=== PATIENT | female | born 2000 | race Two or more races ===

== ENCOUNTER 2019-04-14 17:46 | Emergency (ER) | payer BC, OTHER ==
[~2019-04-14] VITALS: Ht 162.6 cm; Wt 49.9 kg
[2019-04-14 18:17] VITALS: BP 103/59
[2019-04-14 18:40] LABS: Basophils # (auto) 0 uL; Basophils % (auto) 0.3 % (0.0-2.0); Eosinophils # (auto) 0.1 uL; Eosinophils % (auto) 2.1 % (0.0-7.0); Hematocrit 39.3 % (36.0-46.0); Hemoglobin 13.4 g/dL (12.2-16.2); Lymphocytes # (auto) 1.7 uL; Lymphocytes % (auto) 34.1 % (10.0-50.0); Mean Corpuscular Hgb Conc. 34.2 g/dL (32.0-36.0); Mean Corpuscular Volume 87.7 fL (80.0-100.0); Monocytes # (auto) 0.5 uL; Monocytes % (auto) 11.2 % (0.0-12.0); Neutrophils # (auto) 2.6 uL; Neutrophils % (auto) 52.3 % (37.0-80.0); Nucleated Red Blood Cells % 0.2 %; Platelet Count (auto) 202 10^3/uL (140-450); Red Blood Cells 4.48 10^6/uL (4.0-5.20); Red Cell Distribution Width 12.6 % (11.8-14.3); White Blood Cell 4.9 10^3/uL (4.4-10.8)
[2019-04-14 19:04] LABS: Albumin 3.8 g/dL (3.4-5.0); Anion Gap 7 (5-15); Aspartate Aminotransferase 11 U/L (15-37); BUN/Creatinine Ratio 14.5; Blood Urea Nitrogen 10 mg/dL (7-18); Calcium 8.2 mg/dL (8.5-10.1); Carbon Dioxide 26 mmol/L (21-32); Chloride 108 mmol/L (98-107); GFR African American 138 mL/min; GFR Non-African American 114 mL/min; Glucose 112 mg/dL (74-106); Potassium 3.6 mmol/L (3.5-5.1); Sodium 141 mmol/L (136-145)
[2019-04-14 19:19] LABS: Alanine Aminotransferase 17 U/L (13-56); Alkaline Phosphatase 76 U/L (45-117); Total Protein 7.3 g/dL (6.4-8.2)
== END 2019-04-14 20:44 | disposition left against medical advice (07) ==
LOC: ER 17:50
DX: R20.0 Anesthesia of skin (principal); Z53.21 Procedure and treatment not carried out due to patient leaving prior to being seen by health care provider
CPT/HCPCS: 36415; 80053; 84484; 85025

== ENCOUNTER 2024-10-06 17:55 | Emergency (ER) | payer BC, MEDICAID ==
[~2024-10-06] VITALS: Ht 160 cm; Wt 56.4 kg
--- NOTE | 2024-10-06 18:15 | ED.PDOC ---
History of Present Illness HPI Comments 24-year-old female with no reported PMHx or PSHx presents with a chief complaint of suprapubic pain, low back pain, vaginal spotting, throat pain, nausea, vomiting, fever, and current . Patient states that she is 7 weeks , . Patient mentions that her pain is localized to her pelvic muriel on, radiates to her back, and rates her pain a 6/10. Patient denies any sick contacts at home but is febrile at 101.2F and has throat pain. Patient mentions that she has been nauseous and vomiting since last night. Chief Complaint: Pelvic Pain Time Seen by MD: 18:05 Reviewed Notes: Medications, Allergies Allergies: Uncoded Allergies: IODINE CONTRAST (Allergy, Intermediate, 10/06/24) Home Meds Active Scripts Acetaminophen (Tylenol Extra Strength) 500 Mg Tab, 1000 MG PO Q6HP PRN, #30 TAB prn fever or pain Prov:MICHAEL BAUER MD 10/06/24 Information Source: Patient Mode of Arrival: Ambulatory Severity: Moderate Timing: Hours Duration: Since onset Prehospital treatment: None Past Medical History PAST MEDICAL HISTORY: Denies Surgical History: Denies all surgeries 4 Para 1 AB 2 miscarriages Family History Family History: Reviewed,noncontributory to illness Social History Smoker: Non-Smoker Alcohol: Denies ETOH Use Drugs: Denies Drug Use Lives In: Home Constitutional: reports: fever; denies: chills, diaphoresis, fatigue, malaise, sweats, weakness, others EENTM: reports: throat pain; denies: blurred vision, double vision, ear bleeding, ear discharge, ear drainage, ear pain, ear ringing, eye pain, eye redness, hearing loss, mouth pain, mouth swelling, nasal discharge, nose bleeding, nose congestion, nose pain, photophobia, tearing, throat swelling, voice changes, others Respiratory: denies: cough, hemoptysis, orthopnea, SOB at rest, shortness of breath, SOB with excertion, stridor, wheezing, others Cardiovascular: denies: chest pain, dizzy spells, diaphoresis, Dyspnea on exertion, edema, irregular heart beat, left arm pain, lightheadedness, palpitations, PND, syncope, others Gastrointestinal: reports: abdominal pain, nausea, vomiting; denies: abdomen distended, blood streaked bowels, constipated, diarrhea, dysphagia, difficulty swallowing, hematemesis, melena, poor appetite, poor fluid intake, rectal bleeding, rectal pain, others Genitourinary: reports: abnormal vagina bleeding, ; denies: burning, dyspareunia, dysuria, flank pain, frequency, hematuria, incontinence, pain, vagina discharge, urgency, others Neurological: denies: dizziness, fainting, headache, left sided numbness, left sided weakness, numbness, paresthesia, pre-existing deficit, right sided numbness, right sided weakness, seizure, speech problems, tingling, tremors, weakness, others Musculoskeletal: reports: back pain; denies: gout, joint pain, joint swelling, muscle pain, muscle stiffness, neck pain, others Integumetry: denies: bruises, change in color, change in hair/nails, dryness, laceration, lesions, lumps, rash, wounds, others Allergic/Immunocompromised: denies: Difficulty Healing, Frequent Infections, Hives, Itching, others Hematologic/Lymphatic: denies: anemia, blood clots, easy bleeding, easy bruising, swollen glands, others Endocrine: denies: excessive hunger, excessive sweating, excessive thirst, excessive urination, flushing, intolerance to cold, intolerance to heat, unexplained weight gain, unexplained weight loss, others Psychiatric: denies: anxiety, bipolar disorder, depression, hopeless, panic disorder, schizophrenia, sleepless, suicidal, others All Other Systems: Reviewed and Negative Physical Exam General Appearance: No Apparent Distress HEENT: Other (Pupils and face symmetric. Moist mucous membranes.) Neck: Full Range of Motion, Normal Inspection Respiratory: Lungs Clear, No Respiratory Distress, Normal Breath Sounds Cardiovascular: No Edema, No JVD, Regular Rate/Rhythm Breast Exam: Deferred Gastrointestinal: Soft, Suprapubic, Tenderness Genitalia: Deferred Pelvic: Deferred Rectal: Deferred Extremities: Normal inspection, Normal range of motion, Non-tender, No pedal edema Musculoskeletal : Apperance: Normal Neurologic: Alert (Oriented x4), Normal Affect, Normal Mood, Other (Ambulatory) Cerebellar Function: NOT DONE Reflexes: NOT DONE Skin: Dry, Normal Color, Warm Lymphatic: NOT DONE Was a procedure done? Was a procedure done?: No Differential Dx Considerations may include: UTI, viral syndrome, endometritis, threatened , miscarriage, among others X-Ray, Labs, Meds, VS Vital Signs Date Time Temp Pulse Resp B/P (MAP) Pulse Ox O2 Delivery O2 Flow Rate FiO2 10/06/24 21:29 99.1 99 18 115/59 (77) 98 99.1 10/06/24 20:53 101.2 10/06/24 18:08 101.2 105 16 127/75 (92) 97 101.2 Lab Test 10/06/24 21:18 10/06/24 18:18 10/06/24 18:05 Range/Units Influenza Type A Antigen Negative Negative Influenza Type B Antigen Negative Negative SARS-CoV-2 Antigen (Rapid) Negative NEGATIVE White Blood Count 14.0 H 4.4-10.8 10^3/uL Red Blood Count 4.49 4.0-5.20 10^6/uL Hemoglobin 13.7 12.2-16.2 g/dL Hematocrit 40.3 36.0-46.0 % Mean Corpuscular Volume 89.7 80.0-100.0 fL Mean Corpuscular Hemoglobin 30.6 28.0-32.0 pg Mean Corpuscular Hemoglobin Concent 34.1 32.0-36.0 g/dL Red Cell Distribution Width 13.0 11.8-14.3 % Platelet Count 217 140-450 10^3/uL Mean Platelet Volume 8.7 6.9-10.8 fL Neutrophils (%) (Auto) 89.3 H 37.0-80.0 % Lymphocytes (%) (Auto) 5.0 L 10.0-50.0 % Monocytes (%) (Auto) 5.4 0.0-12.0 % Eosinophils (%) (Auto) 0.0 0.0-7.0 % Basophils (%) (Auto) 0.3 0.0-2.0 % Neutrophils # (Auto) 12.5 H 1.6-8.6 10 ^3/uL Lymphocytes # (Auto) 0.7 0.4-5.4 10 ^3/uL Monocytes # (Auto) 0.8 0-1.3 10 ^3/uL Eosinophils # (Auto) 0 0-0.8 10 ^3/uL Basophils # (Auto) 0 0-0.2 10 ^3/uL Nucleated Red Blood Cells 0.0 % Sodium Level 136 136-145 mmol/L Potassium Level 3.7 3.5-5.1 mmol/L Chloride Level 103 98-107 mmol/L Carbon Dioxide Level 26 20-31 mmol/L Anion Gap 7 5-15 Blood Urea Nitrogen 6 L 9-23 mg/dL Creatinine 0.69 0.550-1.02 mg/dL Glomerular Filtration Rate Calc 123 >90 mL/min BUN/Creatinine Ratio 8.7 L 10.0-20.0 Serum Glucose 97 74-106 mg/dL Calcium Level 10.2 8.7-10.4 mg/dL Beta HCG, Quantitative 759400.5 H 1.5-4.2 mIU/mL Urine Color Light-yellow Yellow Urine Clarity Clear Clear Urine pH 6.5 5.0-9.0 Urine Specific [place] 1.021 1.001-1.035 Urine Protein Negative Negative Urine Ketones Trace Negative Urine Blood Negative Negative /uL Urine Nitrite Negative Negative Urine Bilirubin Negative Negative Urine Urobilinogen Normal Negative mg/dL Urine Leukocyte Esterase Negative Negative /uL Urine RBC 1 0 - 4 /hpf Urine Microscopic WBC 1 0-5 /HPF Urine Squamous Epithelial Cells Few <5 /hpf Urine Bacteria None seen None Seen /hpf Urine Mucus Few None Seen Urine Glucose Normal Normal mg/dL Urine Opiates Screen Neg NEGATIVE Urine Fentanyl Screen Neg NEGATIVE Urine Barbiturates Screen Neg NEGATIVE Urine Phencyclidine Screen Neg NEGATIVE Urine Amphetamines Screen Neg NEGATIVE Urine Benzodiazepines Screen Neg NEGATIVE Urine Cocaine Screen Neg NEGATIVE Urine Cannabinoids Screen Neg NEGATIVE Current Medications Medications (Trade) Dose Ordered Sig/Lissette Route Start Time Stop Time Status Last Admin Sodium Chloride 2,000 ml @ 1,000 mls/hr Q2H ONCE IV 10/06/24 18:15 10/06/24 20:14 DC 10/06/24 20:50 Ondansetron HCl (Zofran) 4 mg ONCE ONCE IV 10/06/24 18:15 10/06/24 18:16 DC 10/06/24 20:53 Acetaminophen (Tylenol Tablet Or Capsule) 1,000 mg ONCE ONCE PO 10/06/24 18:15 10/06/24 18:16 DC 10/06/24 20:53 PROCEDURE(s): OB4US - OB ULTRASOUND COMP LESS 14WKS REASON: 7 wk preg pelvic pain vag spotting ORDER NUMBER(s): [id number], ACCESSION NUMBER(s): [id number] OB ULTRASOUND <14 WEEKS: HISTORY: 7 wk preg pelvic pain vag spotting TECHNIQUE: Multiple real-time grayscale sonographic images of the pelvis with duplex Doppler color flow, spectral and M-mode analysis. TRANSDUCERS: Transabdominal and transvaginal COMPARISON: None FINDINGS: The uterus measures 10.7 x 6.2 x 4.9 cm The cervix appears normal. Right ovary measures 2.9 x 1.5 x 2.6 cm with normal Doppler color flow. Left ovary measures 2.8 x 2.2 x 2.5 cm with normal Doppler color flow. IUP single fetus at 7 weeks 4 days average ultrasound age based on mean crown- rump length of 1.2 cm and gestational sac size of 2.8 cm heart rate detected at 169 beats per minute. Yolk sac is visualized. Holly-gestational space: Hypoechoic subchorionic focus measuring 2.6 x 0.9 x 0.8 cm. Additional subchorionic hypoechoic focus measuring 0.6 x 0.5 cm. IMPRESSION: IUP single live fetus 7 weeks 4 days AUA corresponding to an HARRISON of 05/21/2025. Small amount of subchorionic hemorrhage. Bilateral ovaries are normal. X-Ray, Labs, Meds, VS Comment 24-year-old female with reported seven week complaining of suprapubic pain, vaginal spotting, fever and sore throat Vitals remarkable for temperature 101.2, heart rate 105 Exam remarkable for suprapubic tenderness to palpation Rhythm strip independently interpreted by me: Sinus tach, rate 105, no ectopy. Ob ultrasound: IMPRESSION: IUP single live fetus 7 weeks 4 days AUA corresponding to an HARRISON of 05/21/2025. Small amount of subchorionic hemorrhage. Bilateral ovaries are normal. CBC remarkable for WBC 14, basic metabolic panel unremarkable, serum quantitative hCG 615643.5, UA unremarkable, influenza and COVID negative Patient treated with the following in the ED: 2 L 0.9 normal saline IV bolus, Tylenol 1 g p.o., Zofran 4 mg IV with improvement of symptoms Hospitalization was considered, however patient had rapid improvement of symptom s with treatment in the ED, an annual longer feel hospitalization is necessary. Patient appears stable for discharge with close outpatient follow up with her primary physician. Rx Tylenol, Augmentin Time of 1ST Reevaluation: 18:35 Reevaluation 1ST: Unchanged Time of 2ND Reevaluation: 21:07 Reevaluation 2ND: Improved Patient Education/Counseling: Diagnosis, Treatment Family Education/Counseling: No Family Present Departure 1 Departure Time of Disposition: 21:07 Impression: Primary Impression: Vaginal bleeding affecting early Additional Impressions: Febrile illness URI (upper respiratory infection) Qualified Codes: J02.9 - Acute pharyngitis, unspecified Disposition: HOME / SELF CARE / HOMELESS Condition: Stable Referrals: JAGRUTI DAN DO Additional Instructions: Your ultrasound showed a single live fetus. There was also a subchorionic hemorrhage, a condition which can cause bleeding in , however typically resolves as the fetus grows. It does not require any treatment at this time. Please see the report below. Follow up to establish care with an OBGYN as soon as possible. You has been referred to Dr. Dan. I have prescribed medication for fever and antibiotics for an upper respiratory infection. Follow up with your primary doctor in 1-2 days. Return to ER for persistent or worsening symptoms. [facility] [id number] [place] [address] Ph: [phone] DIAGNOSTIC IMAGING Diagnostic Imaging Report : [id number] Signed PATIENT: TIM EVANS ACCT: [id number] UNIT: [id number] : 2000 LOC: ER ROOM / BED: / AGE / SEX: 24 / F ADM STATUS: REG ER SERVICE 1810 ORDERING PHYSICIAN: MICHAEL BAUER MD PROCEDURE(s): OB4US - OB ULTRASOUND COMP LESS 14WKS REASON: 7 wk preg pelvic pain vag spotting ORDER NUMBER(s): [id number], ACCESSION NUMBER(s): [id number] OB ULTRASOUND <14 WEEKS: HISTORY: 7 wk preg pelvic pain vag spotting TECHNIQUE: Multiple real-time grayscale sonographic images of the pelvis with duplex Doppler color flow, spectral and M-mode analysis. TRANSDUCERS: Transabdominal and transvaginal COMPARISON: None FINDINGS: The uterus measures 10.7 x 6.2 x 4.9 cm The cervix appears normal. Right ovary measures 2.9 x 1.5 x 2.6 cm with normal Doppler color flow. Left ovary measures 2.8 x 2.2 x 2.5 cm with normal Doppler color flow. IUP single fetus at 7 weeks 4 days average ultrasound age based on mean crown- rump length of 1.2 cm and gestational sac size of 2.8 cm heart rate detected at 169 beats per minute. Yolk sac is visualized. Holly-gestational space: Hypoechoic subchorionic focus measuring 2.6 x 0.9 x 0.8 cm. Additional subchorionic hypoechoic focus measuring 0.6 x 0.5 cm. IMPRESSION: IUP single live fetus 7 weeks 4 days AUA corresponding to an HARRISON of 05/21/2025. Small amount of subchorionic hemorrhage. Bilateral ovaries are normal. e-Prescriptions Amoxicillin & Pot Clavulanate (AUGMENTIN TABLET) 875 Mg Tb 875 MG PO BID for 10 Days, #20 TAB Prov: MICHAEL ABUER MD 10/06/24 Acetaminophen (Tylenol Extra Strength) 500 Mg Tab 1000 MG PO Q6HP PRN, #30 TAB prn fever or pain Prov: MICHAEL BAUER MD 10/06/24 Discharged With: Relative Critical Care Note Critical Care Time?: No Stability Stability form required: No Heart Score Heart Score: Heart Score Response (Comments) Value History N/A 0 EKG N/A 0 Age N/A 0 Risk Factors N/A 0 Troponin N/A 0 Total 0 I personally scribed for MICHAEL BAUER MD ([email or web address]) on 10/06/24 at 18:15. Electronically submitted by Nakul Santoyo ([email or web address]). MICHAEL BAUER MD Oct 06, 2024 18:15
[2024-10-06 18:34] LABS: Basophils # (auto) 0 10 ^3/uL (0-0.2); Basophils % (auto) 0.3 % (0.0-2.0); Eosinophils # (auto) 0 10 ^3/uL (0-0.8); Hematocrit 40.3 % (36.0-46.0); Hemoglobin 13.7 g/dL (12.2-16.2); Lymphocytes # (auto) 0.7 10 ^3/uL (0.4-5.4); Mean Corpuscular Hemoglobin 30.6 pg (28.0-32.0); Mean Corpuscular Hgb Conc. 34.1 g/dL (32.0-36.0); Mean Corpuscular Volume 89.7 fL (80.0-100.0); Monocytes # (auto) 0.8 10 ^3/uL (0-1.3); Monocytes % (auto) 5.4 % (0.0-12.0); Neutrophils # (auto) 12.5 10 ^3/uL (1.6-8.6); Neutrophils % (auto) 89.3 % (37.0-80.0); Platelet Count (auto) 217 10^3/uL (140-450); Red Blood Cells 4.49 10^6/uL (4.0-5.20)
[2024-10-06 18:40] LABS: Chloride 103 mmol/L (98-107); Potassium 3.7 mmol/L (3.5-5.1); Sodium 136 mmol/L (136-145)
[2024-10-06 18:41] LABS: Anion Gap 7 (5-15); Calcium 10.2 mg/dL (8.7-10.4); Carbon Dioxide 26 mmol/L (20-31)
[2024-10-06 18:46] LABS: BUN/Creatinine Ratio 8.7 (10.0-20.0); Blood Urea Nitrogen 6 mg/dL (9-23); Glucose 97 mg/dL (74-106)
[2024-10-06 20:19] LABS: Urine Bacteria None Seen /hpf (None Seen)
[2024-10-06 20:24] LABS: Urine Blood Negative /uL (Negative); Urine Clarity Clear (Clear); Urine Color Light-Yellow (Yellow); Urine Mucus FEW (None Seen); Urine Protein, UAD Negative (Negative); Urine Specific Gravity 1.021 (1.001-1.035); Urine Squamous Epithelial Cell FEW /hpf (<5); Urine Urobilinogen Normal (Negative); Urine WBC 1 /HPF (0-5); Urine pH 6.5 (5.0-9.0)
--- NOTE | 2024-10-06 20:49 | DVH ---
OB ULTRASOUND <14 WEEKS: HISTORY: 7 wk preg pelvic pain vag spotting TECHNIQUE: Multiple real-time grayscale sonographic images of the pelvis with duplex Doppler color f low, spectral and M-mode analysis. TRANSDUCERS: Transabdominal and transvaginal COMPARISON: None FINDINGS: The uterus measures 10.7 x 6.2 x 4.9 cm The cervix appears normal. Right ovary measures 2.9 x 1.5 x 2.6 cm with normal Doppler color flow. Left ovary measures 2.8 x 2.2 x 2.5 cm with normal Doppler color flow. IUP single fetus at 7 weeks 4 days average ultrasound age based on mean crown-rump length of 1.2 cm and gestational sac size of 2.8 cm heart rate detected at 169 beats per minute. Yolk sac is visualized. Holly-gestational space: Hypoechoic subchorionic focus measuring 2.6 x 0.9 x 0.8 cm. Additional subch orionic hypoechoic focus measuring 0.6 x 0.5 cm. IMPRESSION: IUP single live fetus 7 weeks 4 days AUA corresponding to an HARRISON of 05/21/2025. Small amount of subchorionic hemorrhage. Bilateral ovaries are normal.
[2024-10-06 20:50] LABS: Amphetamine Screen, Urine Neg (NEGATIVE); Barbiturate Scree,Urine Neg (NEGATIVE); Benzodiazephine Screen, Urine Neg (NEGATIVE); Cannabinoid Screen, Urine Neg (NEGATIVE); Cocaine Screen, Urine Neg (NEGATIVE); Opiate Scree,Urine Neg (NEGATIVE); Phencyclidine Screen, Urine Neg (NEGATIVE)
[2024-10-06] MEDS: SODIUM CHLORIDE 0.9% 2,000 ML IV ONE (20:50)
[2024-10-06] MEDS: ACETAMINOPHEN 500 MG TAB or CAP PO ONE (20:53)
[2024-10-06] MEDS: ONDANSETRON HCL 4 MG/2 ML VIAL IV ONE (20:53)
[2024-10-06] MEDS ORDERED: ACET-1304 PO (21:12)
[2024-10-06 21:29] VITALS: BP 115/59; PULSE 99; RESP 18; O2SAT 98
[2024-10-06 21:53] VITALS: TEMP 101.2
[2024-10-06 21:55] LABS: COVID19 ANTIGEN SOFIA FIA NEGATIVE (NEGATIVE)
[2024-10-06 21:56] LABS: Rapid Influenza A Negative (Negative); Rapid Influenza B Negative (Negative)
[2024-10-06] MEDS ORDERED: AUG875T PO (22:05)
== END 2024-10-06 22:55 | disposition home or self-care (01) ==
LOC: ER 17:55
DX: O20.9 Hemorrhage in early pregnancy, unspecified (principal); O99.511 Diseases of the respiratory system complicating pregnancy, first trimester; J06.9 Acute upper respiratory infection, unspecified; O26.891 Other specified pregnancy related conditions, first trimester; R50.9 Fever, unspecified; O26.851 Spotting complicating pregnancy, first trimester; O21.9 Vomiting of pregnancy, unspecified; M54.50 Low back pain, unspecified; R10.2 Pelvic and perineal pain; Z20.822 Contact with and (suspected) exposure to COVID-19; Z79.899 Other long term (current) drug therapy; Z3A.01 Less than 8 weeks gestation of pregnancy; Z88.8 Allergy status to other drugs, medicaments and biological substances
CPT/HCPCS: 36415; 76801; 80048; 80307; 81001; 84702; 85025; 87426; 87804; 96361; 96374; 99285; J2405; J7030

== ENCOUNTER 2024-10-29 20:17 | Emergency (ER) | payer MEDICAID ==
[~2024-10-29] VITALS: Ht 160 cm; Wt 56.0 kg
[~2024-10-29 20:17] MED LIST: ACET-1304 PO; AUG875T PO
[2024-10-29 20:41] VITALS: BP 116/79; PULSE 74; RESP 24; TEMP 98.2; O2SAT 98
[2024-10-29] MEDS ORDERED: SODIUM CHLORIDE 0.9% 1,000 ML IV ONE (20:45)
--- NOTE | 2024-10-29 21:00 | ED.PDOC ---
HPI Comments This is a 24 year old female presenting to the ED with chief complaint of syncope. Patient reports that she had a syncopal episode earlier today along with having a syncopal episode weekly for the past 3 weeks. Patient relays that she last went to [place] on Monday for the same complaint, being given 1L of IV fluids and felt much better at the time until today. Patient states that she believes she is 11 weeks and her OBGYN advised her to come back to the ED if she continues to experience syncopal episodes. Patient notes that her LMP was on 03/2024 and after her syncopal episode at home, she took her BP and it showed 50/40. Patient is . Patient denies any N/V/D, chest pain, SOB, dizziness, headache, head injury, abdominal pain, fever, or chills. Chief Complaint: Syncope Time Seen by MD: 20:57 Primary Care Provider: [facility] Reviewed Notes: Nurses Notes, Medications, Allergies Allergies: Uncoded Allergies: IODINE CONTRAST (Allergy, Intermediate, 10/06/24) Home Meds Active Scripts Amoxicillin & Pot Clavulanate (AUGMENTIN TABLET) 875 Mg Tb, 875 MG PO BID for 10 Days, #20 TAB Prov:MICHAEL BAUER MD 10/06/24 Acetaminophen (Tylenol Extra Strength) 500 Mg Tab, 1000 MG PO Q6HP PRN, #30 TAB prn fever or pain Prov:MICHAEL BAUER MD 10/06/24 Information Source: Patient Mode of Arrival: Ambulatory Severity: Moderate Timing: Weeks Duration: Intermittent Prehospital treatment: None Associated Signs and Symptoms: Syncope Past Medical History PAST MEDICAL HISTORY: Denies Surgical History: Denies all surgeries 4 Para 1 Family History Family History: Reviewed,noncontributory to illness Social History Smoker: Non-Smoker Alcohol: Denies ETOH Use Drugs: Denies Drug Use Lives In: Home Constitutional: denies: chills, diaphoresis, fatigue, fever, malaise, sweats, weakness, others EENTM: denies: blurred vision, double vision, ear bleeding, ear discharge, ear drainage, ear pain, ear ringing, eye pain, eye redness, hearing loss, mouth pain, mouth swelling, nasal discharge, nose bleeding, nose congestion, nose pain, photophobia, tearing, throat pain, throat swelling, voice changes, others Respiratory: denies: cough, hemoptysis, orthopnea, SOB at rest, shortness of breath, SOB with excertion, stridor, wheezing, others Cardiovascular: reports: syncope; denies: chest pain, dizzy spells, diaphoresis, Dyspnea on exertion, edema, irregular heart beat, left arm pain, lightheadedness, palpitations, PND, others Gastrointestinal: denies: abdomen distended, abdominal pain, blood streaked bowels, constipated, diarrhea, dysphagia, difficulty swallowing, hematemesis, melena, nausea, poor appetite, poor fluid intake, rectal bleeding, rectal pain, vomiting, others Genitourinary: denies: abnormal vagina bleeding, burning, dyspareunia, dysuria, flank pain, frequency, hematuria, incontinence, pain, , vagina discharge, urgency, others Neurological: denies: dizziness, fainting, headache, left sided numbness, left sided weakness, numbness, paresthesia, pre-existing deficit, right sided numbness, right sided weakness, seizure, speech problems, tingling, tremors, weakness, others Musculoskeletal: denies: back pain, gout, joint pain, joint swelling, muscle pain, muscle stiffness, neck pain, others Integumetry: denies: bruises, change in color, change in hair/nails, dryness, laceration, lesions, lumps, rash, wounds, others Allergic/Immunocompromised: denies: Difficulty Healing, Frequent Infections, Hives, Itching, others Hematologic/Lymphatic: denies: anemia, blood clots, easy bleeding, easy bruising, swollen glands, others Endocrine: denies: excessive hunger, excessive sweating, excessive thirst, excessive urination, flushing, intolerance to cold, intolerance to heat, unexplained weight gain, unexplained weight loss, others Psychiatric: denies: anxiety, bipolar disorder, depression, hopeless, panic disorder, schizophrenia, sleepless, suicidal, others All Other Systems: Reviewed and Negative Physical Exam General Appearance: No Apparent Distress, Normal HEENT: Normal ENT Inspection, Pharynx Normal, TMs Normal Neck: Full Range of Motion, Non-Tender, Normal, Normal Inspection Respiratory: Chest Non-Tender, Lungs Clear, No Accessory Muscle Use, No Respiratory Distress, Normal Breath Sounds Cardiovascular: No Edema, No JVD, No Murmur, No Gallop, Normal Peripheral Pulses, Regular Rate/Rhythm Breast Exam: Deferred Gastrointestinal: No Organomegaly, Non Tender, No Pulsatile Mass, Normal Bowel Sounds, Soft Genitalia: Deferred Pelvic: Deferred Rectal: Deferred Extremities: No calf tenderness, Normal capillary refill, Normal inspection, Normal range of motion, Non-tender, No pedal edema Musculoskeletal : Apperance: Normal Neurologic: Alert, office helper II-XII nml as Tested, No Motor Deficits, Normal Affect, Normal Mood, No Sensory Deficits Cerebellar Function: Normal Reflexes: Normal Skin: Dry, Normal Color, Warm Lymphatic: No Adenopathy Was a procedure done? Was a procedure done?: No CP Differential Dx Differential Diagnosis: N/A Other Differential Diagnosis dehydration, syncopal episode Differential Diagnosis: HTN Accelerated X-Ray, Labs, Meds, VS Vital Signs Date Time Temp Pulse Resp B/P (MAP) Pulse Ox O2 Delivery O2 Flow Rate FiO2 10/29/24 20:41 98.2 74 24 116/79 (91) 98 98.2 Lab Test 10/29/24 20:43 Range/Units Urine Color Yellow Yellow Urine Clarity Clear Clear Urine pH 6.5 5.0-9.0 Urine Specific [place] 1.034 1.001-1.035 Urine Protein Trace H Negative Urine Ketones Negative Negative Urine Blood Negative Negative /uL Urine Nitrite Negative Negative Urine Bilirubin Negative Negative Urine Urobilinogen Normal Negative mg/dL Urine Leukocyte Esterase Negative Negative /uL Urine RBC 3 0 - 4 /hpf Urine Microscopic WBC 1 0-5 /HPF Urine Squamous Epithelial Cells Few <5 /hpf Urine Bacteria Few H None Seen /hpf Urine Mucus Few None Seen Urine Glucose Normal Normal mg/dL Urine Test Positive Negative Time of 1ST Reevaluation: 21:57 Reevaluation 1ST: Improved Patient Education/Counseling: Diagnosis, Treatment Family Education/Counseling: No Family Present SEPSIS Sepsis Screen Date sepsis recognized/suspect: Oct 29, 2024 Time Sepsis recognized/suspect: 2023 Recent Procedure: No On Antibiotic Therapy: No Respiratory Rate >20: No Heart Rate >90: No Temp<36 C (96.8 F) or >38.3 C: No SBP <90 or MAP <65 mmHG: No New Acute Mental Status Change: No Is the patient on CPAP, BIPAP,: No Vital Signs Date Time Temp Pulse Resp B/P (MAP) Pulse Ox O2 Delivery O2 Flow Rate FiO2 6/24/25 20:41 98.2 74 24 116/79 (91) 98 98.2 Departure 1 Departure Time of Disposition: 22:42 Impression: Primary Impression: UTI (urinary tract infection) Qualified Codes: N30.00 - Acute cystitis without hematuria Additional Impression: Syncopal episodes Qualified Codes: R55 - Syncope and collapse Disposition: HOME / SELF CARE / HOMELESS Condition: Fair e-Prescriptions Nitrofurantoin Monohydrate Mac (Macrobid) 100 Mg Cap 100 MG PO BID for 5 Days, #10 CAP Prov: CHERELLE BOWEN 10/29/24 Discharged With: Self Critical Care Note Critical Care Time?: No Stability Stability form required: No Heart Score Heart Score: Heart Score Response (Comments) Value History Moderate Suspicious 1 EKG Normal 0 Age <45 0 Risk Factors No known risk factors 0 Troponin Normal limit 0 Total 1 I personally scribed for CHERELLE BOWEN ([email or web address]) on 10/29/24 at 21:00. Electronically submitted by Fabricio Jackson ([email or web address]). CHERELLE BOWEN Oct 29, 2024 21:00
[2024-10-29 21:39] LABS: Urine Bacteria FEW /hpf (None Seen); Urine Blood Negative /uL (Negative); Urine Clarity Clear (Clear); Urine Color Yellow (Yellow); Urine Mucus FEW (None Seen); Urine Protein, UAD TRACE (Negative); Urine Specific Gravity 1.034 (1.001-1.035); Urine Squamous Epithelial Cell FEW /hpf (<5); Urine Urobilinogen Normal (Negative); Urine WBC 1 /HPF (0-5); Urine pH 6.5 (5.0-9.0)
[2024-10-29] MEDS ORDERED: NITR-87 PO (22:45)
== END 2024-10-29 23:18 | disposition home or self-care (01) ==
LOC: ER 20:17
DX: O23.41 Unspecified infection of urinary tract in pregnancy, first trimester (principal); N39.0 Urinary tract infection, site not specified; R55 Syncope and collapse; Z3A.11 11 weeks gestation of pregnancy
CPT/HCPCS: 81001; 81025